=== PATIENT | female | born 1950 | race Caucasian/White ===

== ENCOUNTER → 2016-03-22 | Outpatient (CLI) | payer MEDICARE, BC, OTHER ==
--- NOTE | 2016-03-22 14:07 | REPMRS ---
Patient History The patient states she has not had a clinical breast exam in over a year. Patient is postmenopausal. Family history of prostate cancer in father at age 67, breast cancer in paternal aunt, breast cancer in maternal cousin at age 40, and pancreatic cancer in brother. Benign stereotactic core biopsy of the left breast. Digital Woman Screen Mammo: March 22, 2016 - Exam #: [id number] Bilateral CC and MLO view(s) were taken. Technologist: Nette Borja, Technologist Prior study comparison: February 19, 2015, digital woman screen mammo performed at [facility]. January 15, 2014, bilateral digital mammo screening bilat, performed at [facility]. FINDINGS: There are scattered fibroglandular densities. There has been no change in the appearance of the mammogram from the prior studies. There is a mild amount of residual fibroglandular tissue which is fairly symmetric. There is no interval development of dominant mass, architectural distortion, or clustered microcalcification suggestive of malignancy. ASSESSMENT: BI-RADS/ACR category 1 mammogram. Negative. Recommendation Routine screening mammogram in 1 year (for women over age 40). This mammogram was interpreted with the aid of an FDA-approved computer-aided dectection system. Electronically Signed By: Dustin Taylor MD 03/22/16 2500
== END ==
LOC: M WHC 12:39
PROVIDERS: ATTEND Internal Medicine
DX: Z12.31 Encounter for screening mammogram for malignant neoplasm of breast (principal); Z78.0 Asymptomatic menopausal state

== ENCOUNTER → 2017-10-18 | Outpatient (REF) | payer MEDICARE, OTHER ==
[2017-10-18 19:11] LABS: FERRITIN 163 NG/ML (8-252); IRON (FE) 69 UG/DL (50-170); PERCENT SATURATION 25.1 % (13.2-45.0); TOTAL IRON BINDING CAPACITY 275 UG/DL (250-450)
[2017-10-18 19:41] LABS: VITAMIN B12 LEVEL 313 PG/ML (247-911)
== END ==
LOC: M LAB REF 17:19
DX: D64.9 Anemia, unspecified (principal)
CPT/HCPCS: 83550

== ENCOUNTER → 2018-05-20 | Outpatient (CLI) | payer MEDICARE, BC, OTHER ==
--- NOTE | 2018-05-20 11:57 | REPMRS ---
Patient History The patient states she had a clinical breast exam in 04/06 Patient is postmenopausal. Family history of prostate cancer at age 67 in father, breast cancer at age 40 in paternal cousin, pancreatic cancer in brother, breast cancer in paternal aunt. Benign stereotactic core biopsy of the left breast. 3D TOMOSYNTHESIS WAS PERFORMED. Digital Woman Screen Mammo: May 20, 2018 - Exam #: [id number] Bilateral CC and MLO view(s) were taken. Technologist: Edilma Lundy, Technologist Prior study comparison: March 22, 2016, digital woman screen mammo performed at [facility]. February 19, 2015, digital woman screen mammo performed at [facility]. FINDINGS: There are scattered fibroglandular densities. There has been no change in the appearance of the mammogram from the prior studies. There is a mild amount of residual fibroglandular tissue which is fairly symmetric. There is no interval development of dominant mass, architectural distortion, or clustered microcalcification suggestive of malignancy. Assessment: BI-RADS/ACR category 1 mammogram. Negative Mammogram. Recommendation Routine screening mammogram in 1 year (for women over age 40). This mammogram was interpreted with the aid of an FDA-approved computer-aided dectection system. Electronically Signed By: Dustin Taylor MD 05/20/18 0379
== END ==
LOC: M WHC 10:02
PROVIDERS: ATTEND Internal Medicine
DX: Z12.31 Encounter for screening mammogram for malignant neoplasm of breast (principal); Z80.3 Family history of malignant neoplasm of breast; Z80.0 Family history of malignant neoplasm of digestive organs; Z80.42 Family history of malignant neoplasm of prostate

== ENCOUNTER → 2019-03-04 | Outpatient (REF) | payer MEDICARE, OTHER | LOC: M LAB REF 13:25 | PROVIDERS: ATTEND Internal Medicine | DX: R10.9 Unspecified abdominal pain (principal); R19.4 Change in bowel habit ==

== ENCOUNTER → 2019-08-29 | Outpatient (CLI) | payer MEDICARE, BC, OTHER ==
--- NOTE | 2019-08-29 12:33 | REPMRS ---
Patient History The patient states she had a clinical breast exam in March 2019.Family history of prostate cancer at age 67 in father, breast cancer at age 40 in paternal cousin, pancreatic cancer in brother, breast cancer in paternal aunt. Benign stereotactic core biopsy of the left breast. 3D TOMOSYNTHESIS WAS PERFORMED. The [facility] lifetime risk for breast cancer is 10.6%. VOLPARA DENSITY B. Digital Woman Screen Mammo: August 29, 2019 - Exam #: [id number] Bilateral CC and MLO view(s) were taken. Technologist: Catia Hong, Technologist Prior study comparison: May 20, 2018, bilateral digital woman screen mammo performed at [facility]. March 22, 2016, digital woman screen mammo performed at [facility]. FINDINGS: There are scattered fibroglandular densities. There has been no change in the appearance of the mammogram from the prior studies. There is a mild amount of residual fibroglandular tissue which is fairly symmetric. There is no interval development of dominant mass, architectural distortion, or clustered microcalcification suggestive of malignancy. Assessment: BI-RADS/ACR category 1 mammogram. Negative Mammogram. Recommendation Routine screening mammogram in 1 year (for women over age 40). This mammogram was interpreted with the aid of an FDA-approved computer-aided dectection system. Electronically Signed By: Dustin Taylor MD 08/29/19 0715
== END ==
LOC: M WHC 11:26
PROVIDERS: ATTEND Internal Medicine
DX: Z12.31 Encounter for screening mammogram for malignant neoplasm of breast (principal)

== ENCOUNTER → 2020-01-01 | Outpatient (CLI) | payer MEDICARE, BC, OTHER | LOC: M LABSMTC 12:01 | PROVIDERS: ATTEND Internal Medicine Cardiovascular Disease | DX: Z11.59 Encounter for screening for other viral diseases (principal) | CPT/HCPCS: C9803; U0003 ==

== ENCOUNTER 2020-03-22 15:44 | Emergency (ER) | payer MEDICARE, OTHER, BC ==
[~2020-03-22] VITALS: Ht 170.2 cm; Wt 86.4 kg
[2020-03-22] MEDS ORDERED: SIMV20TA22 (16:17)
[2020-03-22] MEDS ORDERED: ASPI-1 PO (16:17)
[2020-03-22] MEDS ORDERED: DORZ2SOL5 (16:17)
[2020-03-22] MEDS ORDERED: TRAV2.5D (16:17)
[2020-03-22] MEDS ORDERED: LOSA100T50 (16:17)
[2020-03-22] MEDS ORDERED: FAMO1TAB11 (16:17)
[2020-03-22 17:24] LABS: BASO # 0.1 10^3/uL (0.0-0.2); BASO % 0.6 % (0.0-1.0); EOS # 0.1 10^3/uL (0.0-0.5); EOS % 1.3 % (0.0-3.0); HEMATOCRIT 42.5 % (36.0-47.0); HEMOGLOBIN 13.1 g/dl (12.0-15.5); LYMPH # 2.5 10^3/uL (1.5-5.0); LYMPH % 28.1 % (24.0-44.0); MEAN CORPUSCULAR HEMOGLOBIN 28.7 pg (27.0-33.0); MEAN CORPUSCULAR HGB CONC 30.8 g/dl (32.0-36.5); MEAN CORPUSCULAR VOLUME 93.2 fl (80.0-96.0); MONO # 0.9 10^3/uL (0.0-0.8); MONO % 10.3 % (0.0-5.0); NEUTROPHILS # 5.2 10^3/uL (1.5-8.5); NEUTROPHILS % 59.4 % (36.0-66.0); PLATELET COUNT, AUTOMATED 302 10^3/uL (150-450); RED BLOOD COUNT 4.56 10^6/uL (4.00-5.40); WHITE BLOOD COUNT 8.7 10^3/uL (4.0-10.0)
[2020-03-22 17:47] LABS: BLOOD UREA NITROGEN 16 MG/DL (7-18); CARBON DIOXIDE LEVEL 29 MEQ/L (21-32); CHLORIDE LEVEL 108 MEQ/L (98-107); CREATININE FOR GFR 0.92 MG/DL (0.55-1.30); GLOMERULAR FILTRATION RATE > 60.0 (>45); GLUCOSE, FASTING 97 MG/DL (70-100); POTASSIUM SERUM 4.3 MEQ/L (3.5-5.1); SODIUM LEVEL 141 MEQ/L (136-145)
--- NOTE | 2020-03-22 19:28 | REPVR ---
PROCEDURE INFORMATION: Exam: CT Head Without Contrast Exam date and time: 03/22/2020 7:11 PM Age: 70 years old Clinical indication: Other: Elev BP; Additional info: Elevated BP, headache TECHNIQUE: Imaging protocol: Computed tomography of the head without contrast. Radiation optimization: All CT scans at this facility use at least one of these dose optimization techniques: automated exposure control; mA and/or kV adjustment per patient size (includes targeted exams where dose is matched to clinical indication); or iterative reconstruction. COMPARISON: No relevant prior studies available. FINDINGS: Brain: Normal. No hemorrhage. Unremarkable white matter. No mass effect. Cerebral ventricles: No ventriculomegaly. Bones/joints: Unremarkable. No acute fracture. Paranasal sinuses: Visualized sinuses are unremarkable. No fluid levels. Mastoid air cells: Visualized mastoid air cells are well aerated. Soft tissues: Unremarkable. IMPRESSION: No acute intracranial abnormality. Electronically signed by: Justus Adrian On 03/22/2020 19:28:45 PM
[2020-03-22 20:02] VITALS: BP 154/74
--- NOTE | 2020-03-23 06:26 | ECGEPIP ---
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
== END 2020-03-22 20:04 | disposition home or self-care (01) ==
LOC: M ED 15:44
DX: I16.0 Hypertensive urgency (principal); I25.10 Atherosclerotic heart disease of native coronary artery without angina pectoris; E78.5 Hyperlipidemia, unspecified; M19.90 Unspecified osteoarthritis, unspecified site; R42 Dizziness and giddiness; Z79.82 Long term (current) use of aspirin; Z79.899 Other long term (current) drug therapy

== ENCOUNTER → 2020-09-08 | Outpatient (CLI) | payer MEDICARE, BC, OTHER ==
[~2020-09-08] MED LIST: ASPI-1 PO; DORZ2SOL5; FAMO1TAB11; LOSA100T50; SIMV20TA22; TRAV2.5D
--- NOTE | 2020-09-08 14:23 | REPMRS ---
Patient History The patient states she had a clinical breast exam in March 2020. Family history of prostate cancer at age 67 in father, breast cancer at age 40 in paternal cousin, pancreatic cancer in brother, breast cancer in paternal aunt. Benign stereotactic core biopsy of the left breast. Patient states no breast complaints today. Patient has signed MRS History Sheet. Digital Woman Screen Mammo: September 08, 2020 - Exam #: [id number] Bilateral CC and MLO view(s) were taken. Technologist: Nazanin Agarwal Technologist Prior study comparison: August 29, 2019, bilateral digital woman screen mammo performed at [facility]. May 20, 2018, bilateral digital woman screen mammo performed at [facility]. March 22, 2016, digital woman screen mammo performed at [facility]. FINDINGS: There are scattered fibroglandular densities. The Volpara volumetric breast density category is:B. There is a needle biopsy marker clip noted in the left breast. There has been no change in the appearance of the mammogram from the prior studies. There is a mild amount of scattered fibroglandular density which is fairly symmetric. There is no interval development of dominant mass, architectural distortion, or grouped microcalcification suggestive of malignancy. 3-D tomosynthesis shows no additional findings. Assessment: BI-RADS/ACR category 2 mammogram. Benign Findings. Recommendation Routine screening mammogram of both breasts in 1 year (for women over age 40). This patient's [facility] Lifetime Breast Cancer Risk is estimated at 10.0 %. This mammogram was interpreted with the aid of an FDA-approved computer-aided dectection system. Electronically Signed By: Dc Díaz MD 09/08/20 9027
== END ==
LOC: M WHC 13:29
PROVIDERS: ATTEND Internal Medicine
DX: Z12.31 Encounter for screening mammogram for malignant neoplasm of breast (principal); Z80.42 Family history of malignant neoplasm of prostate; Z80.3 Family history of malignant neoplasm of breast; Z80.0 Family history of malignant neoplasm of digestive organs

== ENCOUNTER → 2021-10-14 | Outpatient (CLI) | payer MEDICARE, BC, OTHER ==
[~2021-10-14] MED LIST changes: +LOSA100T45; -LOSA100T50
== END ==
LOC: M WHC 10:15
PROVIDERS: ATTEND Internal Medicine
DX: Z12.31 Encounter for screening mammogram for malignant neoplasm of breast (principal)

== ENCOUNTER → 2022-06-21 | Outpatient (CLI) | payer MEDICARE, BC, OTHER | LOC: M PLAIMG 13:12 | PROVIDERS: ATTEND Internal Medicine | DX: R06.02 Shortness of breath (principal) ==

== ENCOUNTER → 2022-11-10 | Outpatient (CLI) | payer MEDICARE, BC, OTHER ==
[~2022-11-10] MED LIST changes: -LOSA100T45; +LOSA100T46
== END ==
LOC: M WHC 12:48
PROVIDERS: ATTEND Internal Medicine
DX: Z12.31 Encounter for screening mammogram for malignant neoplasm of breast (principal)

== ENCOUNTER → 2022-11-23 | Outpatient (CLI) | payer MEDICARE, BC, OTHER | LOC: M WHC 14:12 | PROVIDERS: ATTEND Internal Medicine | DX: M85.80 Other specified disorders of bone density and structure, unspecified site (principal) ==

== ENCOUNTER → 2023-01-31 | Outpatient (REF) | payer MEDICARE, BC, OTHER ==
[2023-01-31 14:13] LABS: PERCENT SATURATION 34.6 % (13.2-45.0)
[2023-01-31 14:15] LABS: FERRITIN 141.1 NG/ML (7.3-270.7)
== END ==
LOC: M LAB REF 12:13
PROVIDERS: ATTEND Internal Medicine
DX: I20.9 Angina pectoris, unspecified (principal); Z79.899 Other long term (current) drug therapy

== ENCOUNTER → 2023-02-16 | Outpatient (CLI) | payer MEDICARE, BC, OTHER | LOC: M WHC 08:19 | PROVIDERS: ATTEND Internal Medicine | DX: R74.8 Abnormal levels of other serum enzymes (principal) ==

== ENCOUNTER 2023-02-22 10:54 | Emergency (ER) | payer MEDICARE, BC, OTHER ==
[~2023-02-22] VITALS: Ht 170.2 cm; Wt 98.5 kg
[2023-02-22] MEDS ORDERED: PRED20TA PO (12:16)
[2023-02-22] MEDS ORDERED: CETI-24 PO (12:16)
[2023-02-22 12:32] VITALS: BP 148/79; TEMP 97.7; O2SAT 98
== END 2023-02-22 12:34 | disposition home or self-care (01) ==
LOC: M ED 10:54
DX: L30.9 Dermatitis, unspecified (principal); I10 Essential (primary) hypertension; Z79.82 Long term (current) use of aspirin; Z79.811 Long term (current) use of aromatase inhibitors; Z79.52 Long term (current) use of systemic steroids; Z79.899 Other long term (current) drug therapy

== ENCOUNTER → 2023-03-05 | Outpatient (CLI) | payer MEDICARE, BC, OTHER ==
[~2023-03-05] MED LIST changes: +CETI-24 PO; +PRED20TA PO
== END ==
LOC: M RAD 08:17
PROVIDERS: ATTEND Nurse Practitioner
DX: R10.13 Epigastric pain (principal); R07.89 Other chest pain; R94.5 Abnormal results of liver function studies; K76.0 Fatty (change of) liver, not elsewhere classified

== ENCOUNTER → 2023-03-20 | Outpatient (CLI) | payer MEDICARE, BC, OTHER ==
[2023-03-20 14:20] LABS: BLOOD UREA NITROGEN 15 MG/DL (9-23); CARBON DIOXIDE LEVEL 28 MMOL/L (20-31); CHLORIDE LEVEL 110 MMOL/L (98-107); CREATININE FOR GFR 0.87 MG/DL (0.55-1.30); GLOMERULAR FILTRATION RATE > 60.0 (>39); GLUCOSE, FASTING 91 MG/DL (74-106); POTASSIUM SERUM 4.5 MMOL/L (3.5-5.1); SODIUM LEVEL 145 MMOL/L (136-145)
== END ==
LOC: M PLALAB 11:28
PROVIDERS: ATTEND Nurse Practitioner
DX: K55.1 Chronic vascular disorders of intestine (principal)

== ENCOUNTER → 2023-04-06 | Outpatient (CLI) | payer MEDICARE, BC, OTHER ==
[~2023-04-06] MED LIST changes: +ISOVUE-370 76% 100ML VIAL ONE
== END ==
LOC: M PLAIMG 10:01
PROVIDERS: ATTEND Nurse Practitioner
DX: K55.1 Chronic vascular disorders of intestine (principal)
CPT/HCPCS: 74175; Q9967

== ENCOUNTER → 2023-10-29 | Outpatient (CLI) | payer MEDICARE, BC, OTHER ==
[~2023-10-29] MED LIST changes: -ISOVUE-370 76% 100ML VIAL ONE
[2023-10-29 18:52] LABS: ALBUMIN 3.4 G/DL (3.2-5.2); ALKALINE PHOSPHATASE 121 U/L (46-116); ALT/SGPT 34 U/L (7.0-40); AST/SGOT 31 U/L (<34); BILIRUBIN,TOTAL 0.6 MG/DL (0.3-1.2); BLOOD UREA NITROGEN 14 MG/DL (9-23); CALCIUM LEVEL 9.3 MG/DL (8.3-10.6); CARBON DIOXIDE LEVEL 29 MMOL/L (20-31); CHLORIDE LEVEL 107 MMOL/L (98-107); CREATININE FOR GFR 0.84 MG/DL (0.55-1.30); GLOMERULAR FILTRATION RATE > 60.0 (>39); GLUCOSE, FASTING 87 MG/DL (74-106); POTASSIUM SERUM 4.2 MMOL/L (3.5-5.1); SODIUM LEVEL 140 MMOL/L (136-145); TOTAL PROTEIN 6.5 G/DL (5.7-8.2)
== END ==
LOC: M PLALAB 15:02
PROVIDERS: ATTEND Internal Medicine Gastroenterology
DX: R94.5 Abnormal results of liver function studies (principal); K44.9 Diaphragmatic hernia without obstruction or gangrene; K22.2 Esophageal obstruction; K65.4 Sclerosing mesenteritis; R07.89 Other chest pain; K76.0 Fatty (change of) liver, not elsewhere classified

== ENCOUNTER → 2023-11-13 | Outpatient (CLI) | payer MEDICARE, BC, OTHER | LOC: M WHC 13:41 | PROVIDERS: ATTEND Internal Medicine | DX: Z12.31 Encounter for screening mammogram for malignant neoplasm of breast (principal); R92.313 Mammographic fatty tissue density, bilateral breasts ==

== ENCOUNTER → 2023-11-20 | Outpatient (CLI) | payer MEDICARE, BC, OTHER ==
[~2023-11-20] MED LIST changes: +GASTROGRAFIN SOLUTION 30ML ONE; +ISOVUE-370 76% 100ML VIAL ONE
== END ==
LOC: M PLAIMG 11:22
PROVIDERS: ATTEND Internal Medicine Gastroenterology
DX: R94.5 Abnormal results of liver function studies (principal); K65.4 Sclerosing mesenteritis; K44.9 Diaphragmatic hernia without obstruction or gangrene; K22.2 Esophageal obstruction; R07.89 Other chest pain; K76.0 Fatty (change of) liver, not elsewhere classified; I87.8 Other specified disorders of veins
CPT/HCPCS: 74177; Q9963; Q9967

== ENCOUNTER → 2023-12-19 | Outpatient (REF) | payer MEDICARE, OTHER ==
[~2023-12-19] MED LIST changes: -GASTROGRAFIN SOLUTION 30ML ONE; -ISOVUE-370 76% 100ML VIAL ONE
[2023-12-19 14:23] LABS: % LABILE ALKALINE PHOSPHATASE 56 %; LABILE ALKPHOS 64 U/L; STABLE ALKPHOS 50 U/L
== END ==
LOC: M LAB REF 11:40
PROVIDERS: ATTEND Internal Medicine
DX: K76.0 Fatty (change of) liver, not elsewhere classified (principal)

== ENCOUNTER → 2023-12-24 | Outpatient (CLI) | payer MEDICARE, BC, OTHER | LOC: M WHC 08:54 | PROVIDERS: ATTEND Internal Medicine | DX: R10.2 Pelvic and perineal pain (principal); R93.89 Abnormal findings on diagnostic imaging of other specified body structures ==

== ENCOUNTER → 2024-02-26 | Outpatient (CLI) | payer MEDICARE, BC, OTHER ==
[~2024-02-26] MED LIST changes: +ATOR40TA75 PO; +BAYE81TA10 PO; +BISO5TAB14 PO; -DORZ2SOL5; +DORZ2SOL5 OU; -FAMO1TAB11; +FAMO1TAB11 PO; +HYDR25TA87 PO; +OLME40TA PO; +VITA100054 PO
[2024-02-26 14:27] LABS: BASO # 0.1 10^3/uL (0.0-0.2); BASO % 0.6 % (0.0-1.0); EOS # 0.1 10^3/uL (0.0-0.5); EOS % 0.8 % (0.0-3.0); HEMATOCRIT 39.3 % (36.0-47.0); HEMOGLOBIN 12.1 g/dl (12.0-15.5); LYMPH # 1.7 10^3/uL (1.5-5.0); LYMPH % 21.5 % (24.0-44.0); MEAN CORPUSCULAR HEMOGLOBIN 30.3 pg (27.0-33.0); MEAN CORPUSCULAR HGB CONC 30.8 g/dl (32.0-36.5); MEAN CORPUSCULAR VOLUME 98.5 fl (80.0-96.0); MONO # 0.9 10^3/uL (0.0-0.8); MONO % 11.2 % (2.0-8.0); NEUTROPHILS # 5.1 10^3/uL (1.5-8.5); NEUTROPHILS % 65.5 % (36.0-66.0); PLATELET COUNT, AUTOMATED 244 10^3/uL (150-450); RED BLOOD COUNT 3.99 10^6/uL (4.00-5.40); WHITE BLOOD COUNT 7.8 10^3/uL (4.0-10.0)
[2024-02-26 14:32] LABS: BLOOD UREA NITROGEN 15 MG/DL (9-23); CALCIUM LEVEL 9.6 MG/DL (8.3-10.6); CARBON DIOXIDE LEVEL 30 MMOL/L (20-31); CHLORIDE LEVEL 107 MMOL/L (98-107); CREATININE FOR GFR 0.81 MG/DL (0.55-1.30); GLOMERULAR FILTRATION RATE > 60.0 (>39); GLUCOSE, FASTING 84 MG/DL (74-106); POTASSIUM SERUM 4.1 MMOL/L (3.5-5.1); SODIUM LEVEL 144 MMOL/L (136-145)
== END ==
LOC: M PLALAB 10:30
PROVIDERS: ATTEND Internal Medicine
DX: Z01.818 Encounter for other preprocedural examination (principal)

== ENCOUNTER 2024-03-05 10:29 | Day surgery (SDC) | payer MEDICARE, BC, OTHER ==
[~2024-03-05] VITALS: Ht 170.2 cm; Wt 65.8 kg
[2024-03-05 10:51] LABS: HEMATOCRIT 41.3 % (36.0-47.0); HEMOGLOBIN 12.9 g/dl (12.0-15.5); MEAN CORPUSCULAR HEMOGLOBIN 30.2 pg (27.0-33.0); MEAN CORPUSCULAR HGB CONC 31.2 g/dl (32.0-36.5); MEAN CORPUSCULAR VOLUME 96.7 fl (80.0-96.0); PLATELET COUNT, AUTOMATED 242 10^3/uL (150-450); RED BLOOD COUNT 4.27 10^6/uL (4.00-5.40); WHITE BLOOD COUNT 7.5 10^3/uL (4.0-10.0)
[2024-03-05] MEDS ORDERED: NS (Normal Saline) 0.9% 1,000 ML IV SCH ×2 (11:20→14:40)
[2024-03-05] MEDS ORDERED: LIDOCAINE 2% 100MG/5ML SDV (FOR ANES.) As Ordered ONE (13:32)
[2024-03-05] MEDS ORDERED: propofoL 200 MG/20 ML VIAL As Ordered ONE (13:32)
[2024-03-05] MEDS ORDERED: ONDANSETRON 4MG 2ML VIAL As Ordered ONE (13:32)
[2024-03-05] MEDS ORDERED: MIDAZOLAM INJ 2MG/2ML VIAL As Ordered ONE (13:32)
[2024-03-05] MEDS ORDERED: fentaNYL 100 MCG/2 ML INJECTION As Ordered ONE (13:32)
[2024-03-05] MEDS ORDERED: ACETAMINOPHEN 1000MG/100ML IV BAG As Ordered ONE (13:36)
[2024-03-05] MEDS ORDERED: ePHEDrine INJ 50MG/ML 1ML VIAL As Ordered ONE (13:42)
[2024-03-05] MEDS ORDERED: HYDROMORPHONE HCL 0.5 MG/ 0.5 ML SYRINGE IV PRN (14:40)
[2024-03-05] MEDS ORDERED: oxyCODONE 5MG TAB PO PRN (14:40)
[2024-03-05] MEDS ORDERED: fentaNYL 100 MCG/2 ML INJECTION IV PRN (14:40)
[2024-03-05] MEDS ORDERED: ONDANSETRON 4MG 2ML VIAL IV PRN (14:40)
[2024-03-05 16:23] VITALS: BP 159/79; TEMP 97.7; O2SAT 99
== END 2024-03-05 16:31 | disposition home or self-care (01) ==
LOC: M SDC 10:29
PROVIDERS: ATTEND Obstetrics & Gynecology
DX: C54.1 Malignant neoplasm of endometrium (principal); N95.0 Postmenopausal bleeding; I12.9 Hypertensive chronic kidney disease with stage 1 through stage 4 chronic kidney disease, or unspecified chronic kidney disease; N18.31 Chronic kidney disease, stage 3a; E78.00 Pure hypercholesterolemia, unspecified; E55.9 Vitamin D deficiency, unspecified; Z79.899 Other long term (current) drug therapy; Z86.0100 Personal history of colon polyps, unspecified; Z80.42 Family history of malignant neoplasm of prostate; Z88.8 Allergy status to other drugs, medicaments and biological substances
CPT/HCPCS: 36415; 58558; 85027; 86850; 86900; 86901; 88305; J0131; J1100; J2250; J2405; J3010

== ENCOUNTER → 2024-11-14 | Outpatient (CLI) | payer MEDICARE, BC, OTHER ==
[~2024-11-14] MED LIST changes: +CHOL25CA2 PO; -VITA100054 PO
== END ==
LOC: M WHC 08:28
PROVIDERS: ATTEND Internal Medicine
DX: Z12.31 Encounter for screening mammogram for malignant neoplasm of breast (principal); R92.313 Mammographic fatty tissue density, bilateral breasts

== ENCOUNTER → 2024-12-17 | Outpatient (REF) | payer MEDICARE, OTHER | LOC: M LAB REF 14:15 | DX: N39.0 Urinary tract infection, site not specified (principal) ==

== ENCOUNTER → 2024-12-19 | Outpatient (REF) | payer MEDICARE, OTHER | LOC: M LAB REF 12:33 | PROVIDERS: ATTEND Internal Medicine | DX: E31.9 Polyglandular dysfunction, unspecified (principal) ==

== ENCOUNTER → 2024-12-31 | Outpatient (CLI) | payer MEDICARE, BC, OTHER | LOC: M RAD 09:02 | PROVIDERS: ATTEND Internal Medicine | DX: R31.9 Hematuria, unspecified (principal) ==